=== PATIENT | female | born 1930 | race Caucasian/White ===

== ENCOUNTER 2016-11-06 10:06 | Day surgery (SDC) | payer MEDICARE, BC ==
[~2016-11-06] VITALS: Ht 167.6 cm; Wt 70.0 kg
[2016-11-06 10:59] LABS: HEMOGLOBIN 13.4 g/dL (11.7-16.4)
[2016-11-06 11:14] LABS: BLOOD UREA NITROGEN 30 mg/dL (7-18)
[2016-11-06 11:17] VITALS: BP 116/68
[2016-11-06] MEDS ORDERED: ATOR10TA9 PO (11:34)
[2016-11-06] MEDS ORDERED: LOSA1TAB16 PO (11:34)
[2016-11-06] MEDS ORDERED: MULT-709 PO (11:34)
[2016-11-06] MEDS ORDERED: AMIO200T42 PO (11:34)
[2016-11-06] MEDS ORDERED: VIT1TABL32 PO (11:34)
[2016-11-06] MEDS ORDERED: DABI150C PO (11:34)
[2016-11-06] MEDS ORDERED: MEMA28CA PO (11:34)
[2016-11-06] MEDS ORDERED: CHOL20003 PO (11:34)
[2016-11-06] MEDS ORDERED: LOSA50TA6 PO (11:41)
[2016-11-06] MEDS ORDERED: PROPOFOL 10 MG/ML, 20ML ONE (12:17)
== END 2016-11-06 14:09 ==
LOC: CACL 10:06
PROVIDERS: ATTEND Internal Medicine Cardiovascular Disease
DX: I48.92 Unspecified atrial flutter (principal); I47.1 Supraventricular tachycardia; I10 Essential (primary) hypertension; E78.5 Hyperlipidemia, unspecified; G47.30 Sleep apnea, unspecified
CPT/HCPCS: 36415; 80048; 85025; 85610; 92960; 93005; J2704

== ENCOUNTER → 2017-11-03 | Outpatient (CLI) | payer MEDICARE, BC ==
[~2017-11-03] MED LIST: AMIO200T42 PO; ATOR10TA9 PO; CHOL2000 PO; DABI150C PO; LOSA1TAB19 PO; LOSA50TA6 PO; MEMA28CA PO; MULT-709 PO; VIT1TABL32 PO
== END ==
LOC: CFH 12:50 → EDSTATUS 13:00
PROVIDERS: ATTEND Internal Medicine Cardiovascular Disease
DX: I35.0 Nonrheumatic aortic (valve) stenosis (principal); I48.91 Unspecified atrial fibrillation; I11.9 Hypertensive heart disease without heart failure
CPT/HCPCS: 93306

== ENCOUNTER 2017-11-11 10:41 | Day surgery (SDC) | payer MEDICARE, BC ==
[~2017-11-11] VITALS: Ht 167.6 cm; Wt 56.4 kg
[2017-11-11] MEDS ORDERED: NITR50CA PO (11:21)
[2017-11-11] MEDS ORDERED: DONE10TA7 PO (11:21)
[2017-11-11] MEDS ORDERED: SERT25TA3 PO (11:21)
[2017-11-11] MEDS ORDERED: CHRO1TAB7 PO (11:21)
[2017-11-11] MEDS ORDERED: B12 PO (11:21)
[2017-11-11 11:24] VITALS: BP 100/72
[2017-11-11 11:26] LABS: BASOPHILS # (AUTO) 0.12 x10^3/uL (0-0.1); BASOPHILS % (AUTO) 2 % (0-1); EOSINOPHILS # (AUTO) 0.15 x10^3/uL (0-0.4); EOSINOPHILS % (AUTO) 2 % (1-7); LYMPHOCYTES # (AUTO) 1.12 x10^3/uL (1-3.4); LYMPHOCYTES % (AUTO) 16 % (22-44); MD NO; MEAN CORPUSCULAR HEMOGLOBIN 30.4 pg (27.0-34.8); MEAN PLATELET VOLUME 9.2 fL (7.4-10.4); MONOCYTES # (AUTO) 0.47 x10^3/uL (0.2-0.8); MONOCYTES % (AUTO) 7 % (2-9); NEUTROPHILS # (AUTO) 5.13 x10^3/uL (1.8-6.8); NEUTROPHILS % (AUTO) 73 % (42-75); PLATELET COUNT 179 x10^3/uL (130-400); RED BLOOD COUNT 4.36 x10^6/uL (3.82-5.3)
[2017-11-11 11:33] LABS: ANION GAP 3 mmol/L (5-15); CALCIUM 8.8 mg/dL (8.5-10.1); CHLORIDE 112 mmol/L (98-107); CREATININE 1.26 mg/dL (0.55-1.02)
[2017-11-11] MEDS ORDERED: PROPOFOL 10 MG/ML, 20ML ONE (12:33)
== END 2017-11-11 14:55 ==
LOC: CACL 10:41 → EDSTATUS 12:30 → CACL 14:55
PROVIDERS: ATTEND Internal Medicine Cardiovascular Disease
DX: I48.91 Unspecified atrial fibrillation (principal); I10 Essential (primary) hypertension; G47.30 Sleep apnea, unspecified; N39.0 Urinary tract infection, site not specified; J44.9 Chronic obstructive pulmonary disease, unspecified; Z79.899 Other long term (current) drug therapy; Z87.440 Personal history of urinary (tract) infections
CPT/HCPCS: 36415; 80048; 85025; 92960; 93005; J2704

== ENCOUNTER → 2018-10-27 | Outpatient (CLI) | payer MEDICARE, BC ==
[~2018-10-27] MED LIST changes: +ATOR10TA PO; +B12 PO; +CHRO1TAB7 PO; +DONE10TA7 PO; +LOSA25TA25 PO; +LOSA50TA14 PO; -LOSA50TA6 PO; +NITR50CA PO; +SERT25TA3 PO
== END | disposition home or self-care (01) ==
LOC: CFH 16:16
PROVIDERS: ATTEND Internal Medicine Cardiovascular Disease
DX: J43.9 Emphysema, unspecified (principal); I48.91 Unspecified atrial fibrillation; I10 Essential (primary) hypertension; E78.5 Hyperlipidemia, unspecified; G47.30 Sleep apnea, unspecified; N39.0 Urinary tract infection, site not specified; Z79.899 Other long term (current) drug therapy
CPT/HCPCS: 71046

== ENCOUNTER → 2018-12-27 | Outpatient (CLI) | payer MEDICARE, BC ==
[2018-12-27 15:54] LABS: BASOPHILS # (AUTO) 0.05 x10^3/uL (0-0.1); BASOPHILS % (AUTO) 1 % (0-1); EOSINOPHILS # (AUTO) 0.11 x10^3/uL (0-0.4); EOSINOPHILS % (AUTO) 2 % (1-7); LYMPHOCYTES # (AUTO) 1.21 x10^3/uL (1-3.4); LYMPHOCYTES % (AUTO) 21 % (22-44); MD NO; MEAN CORPUSCULAR HEMOGLOBIN 30.2 pg (27.0-34.8); MEAN CORPUSCULAR HGB CONC 32.6 g/dL (32.4-35.8); MEAN CORPUSCULAR VOLUME 92.7 fL (80-100); MEAN PLATELET VOLUME 10.5 fL (7.4-10.4); MONOCYTES # (AUTO) 0.39 x10^3/uL (0.2-0.8); MONOCYTES % (AUTO) 7 % (2-9); NEUTROPHILS # (AUTO) 4.04 x10^3/uL (1.8-6.8); NEUTROPHILS % (AUTO) 70 % (42-75); PLATELET COUNT 161 x10^3/uL (130-400); RED BLOOD COUNT 4.43 x10^6/uL (3.82-5.3); RED CELL DISTRIBUTION WIDTH 15.9 % (9.6-15.2)
[2018-12-27 16:00] LABS: ALBUMIN 3.5 g/dL (3.4-5.0); ANION GAP 4 mmol/L (5-15); CALCIUM 8.7 mg/dL (8.5-10.1); CHLORIDE 111 mmol/L (98-107)
[2018-12-27 16:12] LABS: ALANINE AMINOTRANSFERASE 29 U/L (12-78); ALKALINE PHOSPHATASE 157 U/L (45-117); BILIRUBIN,TOTAL 0.5 mg/dL (0.2-1.0); CHOLESTEROL, TOTAL 148 mg/dL (140-239); CREATININE 1.09 mg/dL (0.55-1.02); HDL CHOL % 49 % (28-40); HDL CHOLESTEROL (DIRECT) 73 mg/dL (40-60); LDL CHOLESTEROL,CALCULATED 63 mg/dL (54-169); LDL/HDL RATIO 0.9 (0.5-3.0); TOTAL PROTEIN 6.9 g/dL (6.4-8.2); TRIGLYCERIDES 61 mg/dL (50-200); VLDL CHOLESTEROL 12 mg/dL (0-25)
== END | disposition home or self-care (01) ==
LOC: CFH 14:34
PROVIDERS: ATTEND Internal Medicine Cardiovascular Disease
DX: E78.5 Hyperlipidemia, unspecified (principal); I48.91 Unspecified atrial fibrillation; Z79.899 Other long term (current) drug therapy
CPT/HCPCS: 36415; 80053; 80061; 82306; 84443; 85025; 85027

== ENCOUNTER 2019-09-26 11:09 | Day surgery (SDC) | payer MEDICARE, BC ==
[~2019-09-26] VITALS: Ht 167.6 cm; Wt 65.0 kg
[2019-09-26 11:48] VITALS: BP 164/95
[2019-09-26] MEDS ORDERED: SERT50TA PO (11:56)
[2019-09-26] MEDS ORDERED: PROPOFOL 10 MG/ML, 20ML ONE (12:02)
== END 2019-09-26 13:13 | disposition home or self-care (01) ==
LOC: CACL 11:09
PROVIDERS: ATTEND Internal Medicine Cardiovascular Disease
DX: I48.91 Unspecified atrial fibrillation (principal); I10 Essential (primary) hypertension; E66.3 Overweight; E78.5 Hyperlipidemia, unspecified; G47.30 Sleep apnea, unspecified; J44.9 Chronic obstructive pulmonary disease, unspecified; Z68.22 Body mass index [BMI] 22.0-22.9, adult; Z87.891 Personal history of nicotine dependence; Z79.899 Other long term (current) drug therapy; Z88.0 Allergy status to penicillin; Z88.5 Allergy status to narcotic agent; Z99.81 Dependence on supplemental oxygen
CPT/HCPCS: 92960; 93005; J2704

== ENCOUNTER → 2020-06-10 | Outpatient (CLI) | payer MEDICARE, BC ==
[~2020-06-10] MED LIST changes: +SERT50TA PO
== END | disposition home or self-care (01) ==
LOC: CVU 13:54
PROVIDERS: ATTEND Internal Medicine Cardiovascular Disease
DX: I08.8 Other rheumatic multiple valve diseases (principal); I48.91 Unspecified atrial fibrillation; I11.9 Hypertensive heart disease without heart failure; R93.1 Abnormal findings on diagnostic imaging of heart and coronary circulation
CPT/HCPCS: 93306; 93880